=== PATIENT | male | born 1990 | race Caucasian/White ===

== ENCOUNTER 2021-01-14 01:13 | Emergency (ER) | payer BC ==
[~2021-01-14] VITALS: Ht 182.9 cm; Wt 63.5 kg
[2021-01-14 01:39] LABS: ABSOLUTE NEUTROPHILS 5.5 thou/uL (1.4-8.2); HEMATOCRIT 47.6 % (42.0-52.0); HEMOGLOBIN 16.2 gm/dL (14.0-18.0); LYMPHOCYTES 31.6 % (24.0-44.0); MCH 31.1 pg (26.0-34.0); MCHC 34.1 g/dL (28.0-37.0); MCV 91.3 fL (80.0-100.0); MONOCYTES 6.8 % (1.0-8.0); PLATELET COUNT 228 thou/uL (150-400); POLYS 59.6 % (36.0-66.0); RBC 5.22 mil/uL (4.50-6.00); RDW 12.7 % (10.5-14.5); WBC 9.2 thou/uL (4.0-11.0)
[2021-01-14 01:53] LABS: CALCIUM 8.8 mg/dL (8.5-10.1); CREATININE 1.2 mg/dL (0.7-1.3); POTASSIUM 3.5 mmol/L (3.5-5.1)
[2021-01-14 01:59] LABS: ALBUMIN 4.3 g/dL (3.4-5.0); TOTAL BILIRUBIN 0.3 mg/dL (0.2-1.0); TOTAL PROTEIN 7.7 g/dL (6.4-8.2)
[2021-01-14] MEDS ORDERED: ZOFRAN ODT4 MG PO (04:42)
[2021-01-14 04:47] VITALS: BP 127/72
== END 2021-01-14 04:51 | disposition home or self-care (01) ==
LOC: ER 01:13
PROVIDERS: Emergency Medicine
DX: T40.7X1A Poisoning by cannabis (derivatives), accidental (unintentional), initial encounter (principal); R11.10 Vomiting, unspecified; Y92.89 Other specified places as the place of occurrence of the external cause